=== PATIENT | male | born 1970 | race Caucasian/White ===

== ENCOUNTER 2021-05-18 04:27 | Day surgery (SDC) | payer OTHER ==
[2021-05-15 16:49] VITALS: BMI 29.4
[2021-05-18] MEDS ORDERED: MIDAZOLAM HCL 2 MG/2 ML SINGLE DOSE VIAL ONE ×3 (09:31→09:46)
[2021-05-18] MEDS ORDERED: ceFAZolin SODIUM 1 GM VIAL IVPB ONE (09:45)
[2021-05-18] MEDS ORDERED: PROPOFOL 20 ML ONE (09:46)
[2021-05-18] MEDS ORDERED: ceFAZolin SODIUM 1 GM VIAL ONE (09:48)
[2021-05-18] MEDS ORDERED: oxyCODONE HCL 5 MG TABLET PO PRN (12:35)
[2021-05-18] MEDS ORDERED: ONDANSETRON 4 MG/2 ML VIAL IVPUSH PRN (12:35)
[2021-05-18] MEDS ORDERED: ACETAMINOPHEN 1000 MG/100 ML VIAL (NON FORMULARY) IVPB ONE ×2 (12:36)
[2021-05-18] MEDS ORDERED: LACTATED RINGERS SOLUTION 1,000 ML IV SCH (12:45)
[2021-05-18 13:34] VITALS: BP 140/63; PULSE 63; TEMP 978
== END 2021-05-18 13:40 | disposition home or self-care (01) ==
LOC: JASU-SURG 04:27
PROVIDERS: ATTEND Surgery
PROC: 0WQF0ZZ Repair Abdominal Wall, Open Approach (ICD-10-PCS; principal; 2021-05-18 09:00)
DX: K42.9 Umbilical hernia without obstruction or gangrene (principal)
CPT/HCPCS: 94760; J0131